=== PATIENT | male | born 1960 | race Caucasian/White ===

== ENCOUNTER 2017-04-20 07:24 | Day surgery (SDC) | payer OTHER ==
[2017-04-18 14:22] VITALS: BMI 25.7
[2017-04-20] MEDS ORDERED: PROPOFOL 20 ML ONE ×2 (07:27)
[2017-04-20] MEDS ORDERED: LIDOCAINE HCL/PF 2% SDV 5ML VIAL ONE (07:27)
[2017-04-20 11:24] VITALS: BP 112/67; PULSE 67; TEMP 98
== END 2017-04-20 10:45 | disposition home or self-care (01) ==
LOC: FASU-ENDO 07:24
PROVIDERS: ATTEND Internal Medicine Gastroenterology
PROC: 0DJD8ZZ Inspection of Lower Intestinal Tract, Via Natural or Artificial Opening Endoscopic (ICD-10-PCS; principal; 2017-04-20 09:24)
DX: Z12.11 Encounter for screening for malignant neoplasm of colon (principal)